=== PATIENT | male | born 1955 | race Caucasian/White ===

== ENCOUNTER 2024-10-20 12:50 | Emergency (ER) | payer OTHER, SELFPAY ==
[2024-10-20] VITALS (47 sets, daily range): BP systolic 84–135; BP diastolic 43–113; PULSE 71–103; TEMP 36.8; O2SAT 90–98; BMI 46.8
--- NOTE | 2024-10-20 12:58 | CT_ITS ---
The [address] [address] Patient Name: MARYBEL THOMSON MRN: [id number] date: 1955 Sex: M Assigned Patient Location: ED.MAIN Current Patient Location: Accession/Order Number: [id number] Exam Date: 10/20/2024 13:50 Report Date: 10/20/2024 14:30 At the request of: SIERRA MCCORMICK Procedure: CT abdomen pelvis w con EXAMINATION: CT abdomen pelvis w con HISTORY: Bright red blood per rectum COMPARISON: No relevant comparison available. TECHNIQUE: CT images were created with IV contrast. Axial, Coronal, and Sagittal images. Dose reduction techniques were achieved by using automated exposure control and/or adjustment of mA and/or kV according to patient size and/or use of iterative reconstruction technique. FINDINGS: LUNG BASES: No visible pulmonary or pleural disease. Moderate coronary atherosclerosis LIVER: No enlargement, atrophy, abnormal density, or significant focal lesion. BILIARY: Cholelithiasis without CT evidence of acute cholecystitis PANCREAS: No lesion, fluid collection, ductal dilatation, or atrophy. SPLEEN: No enlargement or focal lesion. ADRENALS: No mass or enlargement. KIDNEYS: A right nephrolith. Bilateral renal cortical hypodensities likely cysts BOWEL/MESENTERY: Mild colonic diverticulosis without evidence of acute diverticulitis. Nonobstructive bowel gas pattern. Normal appendix. Lobular fluid density multilocular cystic mass identified in the central peritoneal cavity possibly arising from the pancreatic head measuring 16.6 x 9.1 cm in axial image #106 and 21.4 cm in craniocaudal dimension AORTA/VASCULAR: No aneurysm or dissection. RETROPERITONEUM: No aortic aneurysm. Moderate calcific atherosclerosis LYMPH NODES: No adenopathy. URINARY BLADDER: Urinary bladder wall thickening possibly related to nondistention measuring up to 5 mm PELVIC ORGANS: Enlarged prostate measuring 6 cm deforming the urinary bladder ABDOMINAL WALL: 7.5 cm ventral abdominal wall hernia containing fat without strangulation BONES: No bony lesion or fracture. OTHER: Negative. CT/CT abdomen pelvis w con IMPRESSION: Multilocular fluid density cystic lesion measuring 16.6 x 9.1 x 21.4 cm within the central peritoneal cavity possibly arising from the pancreas, this is indeterminate Enlarged prostate gland Electronically authenticated by: BRITTANIE RODRIGUEZ Date: 10/20/2024 14:30
--- NOTE | 2024-10-20 12:58 | ECG_ITS ---
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
--- NOTE | 2024-10-20 13:00 | ED_ITS ---
HPI HPI - General Adult General Chief complaint: Abdominal Pain Stated complaint: RECTAL BLEEDING Time Seen by Provider: 10/20/24 12:53 Source: patient Mode of arrival: ambulance Limitations: no limitations History of Present Illness HPI narrative: 69-year-old male presents for bright red blood per rectum. He states he had a large bloody bowel movement at home today and then he went out to breakfast. While he was sitting at the table eating he had more blood come out of his rectum. He states he had a colonoscopy 10 years ago and he was told he has diverticulosis. He has no complaints of abdominal pain or fever. He has had no vomiting and this morning with the first time he has ever had a bloody bowel movement like this. He tells me he is on no blood thinners. Related Data Home Medications ?Medication ?Instructions ?Recorded ?Confirmed aspirin 81 mg tablet,delayed 81 mg PO DAILY 10/20/24 10/20/24 release (Lalit Low Dose Aspirin) losartan 100 1 tab PO DAILY 10/20/24 10/20/24 mg-hydrochlorothiazide 25 mg tablet Allergies Allergy/AdvReac Type Severity Reaction Status Date / Time No Known Drug Allergies Allergy Verified 10/20/24 12:53 Opioid HPI Opioid Management Most Recent Opioid Data: No Data to Display Review of Systems ROS Narrative A ten point review of systems is negative except as noted above. [facility] Medical History (Updated 10/20/24 @ 16:38 by Jerod Lo MD) Diverticulosis ?K57.90 - Diverticulosis of intestine, part unspecified, without perforation or abscess without bleeding (ICD-10) Hypertension ?I10 - Essential (primary) hypertension (ICD-10) Exam Narrative Exam Narrative: Nurses note and vital signs reviewed and patient is not hypoxic. General: The patient appears in no apparent distress. Skin: Warm, dry, no pallor noted. There is no rash noted. Head: Normocephalic, atraumatic Eye: Normal conjunctiva, no drainage Ears, Nose, Mouth, and Throat: oral mucosa is moist. Nares patent. Cardiovascular: Regular Rate and Rhythm, not tachycardic Respiratory: Patient is in no distress, no accessory muscle use, lungs are clear to auscultation, no wheezing, rales or rhonchi Back: non-tender GI: Obese and nontender. Perianal examination shows no external hemorrhoids. There is a great deal of dried blood on his legs and perineal area. Musculoskeletal: The patient has no evidence of calf tenderness, no pitting edema, symmetrical pulses noted bilaterally Neurological: A&O, normal speech Psychiatric: Cooperative Constitutional Vital Signs, click to edit/add: Last Vital Signs Temp 98.2 F 10/20/24 13:04 Pulse 83 10/20/24 16:20 Resp 14 10/20/24 16:20 BP 97/61 10/20/24 16:00 Pulse Ox 94 L 10/20/24 16:20 O2 Del Method Nasal Cannula 10/20/24 13:03 O2 Flow Rate 3 10/20/24 13:03 Course Vital Signs Vital signs: Vital Signs Pulse Rate 103 H 10/20/24 12:53 Respiratory Rate 20 10/20/24 12:53 Blood Pressure 135/82 10/20/24 12:53 Pulse Oximetry 90 L 10/20/24 12:53 Oxygen Delivery Method Nasal Cannula 10/20/24 12:53 Oxygen Delivery Flow Rate 3 10/20/24 12:53 Temperature 98.2 F 10/20/24 13:04 Pulse Rate 83 10/20/24 16:20 Respiratory Rate 14 10/20/24 16:20 Blood Pressure 97/61 10/20/24 16:00 Pulse Oximetry 94 L 10/20/24 16:20 Oxygen Delivery Method Nasal Cannula 10/20/24 13:03 Oxygen Delivery Flow Rate 3 10/20/24 13:03 Medical Decision Making MDM Narrative Medical decision making narrative: Hemoglobin is 14.9 initially. He had a brief episode of low blood pressure in the 80s and this responded to IV fluids. He, as of the time of this dictation, has not had any more GI bleeding. CT scan shows a cystic mass in the peritoneal cavity possibly associated with the pancreas. Family initially requested transfer to [facility] but they have no bed availability. They have requested then transferred to [facility] and I have spoken to the hospitalist there who accepts the patient. The patient is hemodynamically stable and agreeable for transfer. Differential Diagnosis Differential Diagnosis: Upper GI bleed, lower GI bleed, diverticulitis Lab Data Lab results reviewed: Yes I reviewed the patient's lab results Labs: Lab Results 10/20/24 Range/Units 13:05 WBC 10.6 (4.0-11.0) 10^3/uL RBC 5.36 (4.70-6.10) 10^6/uL Hgb 14.9 (14.0-18.0) g/dL Hct 49.2 (42.0-54.0) % MCV 91.8 (80.0-94.0) fL MCH 27.8 (25.9-34.0) pg MCHC 30.3 (29.9-35.2) g/dL RDW 15.1 H (11.0-15.0) % Plt Count 267 (150-450) 10^3/uL MPV 11.4 (9.5-13.5) fL Neut % (Auto) 69.1 (43.0-75.0) % Lymph % (Auto) 20.5 (20.5-60.0) % [place] % (Auto) 6.6 (1.7-12.0) % Eos % (Auto) 2.7 (0.9-7.0) % Baso % (Auto) 0.6 (0.2-2.0) % Neut # (Auto) 7.3 H (1.4-6.5) 10^3/uL Lymph # (Auto) 2.2 (1.2-3.8) 10^3/uL [place] # (Auto) 0.7 (0.3-0.8) 10^3/uL Eos # (Auto) 0.3 (0.0-0.7) 10^3/uL Baso # (Auto) 0.1 (0.0-0.1) 10^3/uL Abs Immat Gran (auto) 0.05 H (0.00-0.03) 10^3/uL Imm/Tot Granulo (auto) 0.5 (0.0-0.5) % PT 11.1 (9.0-11.6) sec INR 1.05 APTT 23.7 (22.3-36.2) sec Sodium 142 (136-145) mmol/L Potassium 4.2 (3.5-5.1) mmol/L Chloride 102 (98-107) mmol/L Carbon Dioxide 35.0 H (21.0-32.0) mmol/L Anion Gap 9.2 BUN 16.0 (7.0-18.0) mg/dL Creatinine 1.14 (0.70-1.30) mg/dL Est GFR ( Amer) >60 (>=60 mL/min/1.73m^2) Est GFR (Non-Af Amer) >60 (>=60 mL/min/1.73m^2) BUN/Creatinine Ratio 14.0 Glucose 155 H (74-106) mg/dL Calcium 9.2 (8.5-10.1) mg/dL Imaging Data CT scan - abdomen: Radiologist's impression: ITS Impressions Abdomen/Pelvis CT 10/20/24 12:58 IMPRESSION: Multilocular fluid density cystic lesion measuring 16.6 x 9.1 x 21.4 cm within the central peritoneal cavity possibly arising from the pancreas, this is indeterminate Enlarged prostate gland Electronically authenticated by: BRITTANIE RODRIGUEZ Date: 10/20/2024 14:30 ECG Data Attestation: I personally reviewed and interpreted this ECG as follows: (EKG on my interpretation shows sinus rhythm with rate of 84 and no acute changes) Critical Care Time Critical Care Time Critical Care Time: Yes Total Critical Care Time: 35 Attestation: Due to the high probability of sudden and clinically significant deterioration in the patient's condition he/she required the highest level of my preparedness to intervene urgently I provided critical care time including documentation time, medication orders and management, reevaluation, vital sign assessment, ordering and reviewing of lab tests, ordering and reviewing of x-ray studies, and admission orders. Aggregate critical care time is 35 minutes including only time during which I was engaged in work directly related to his/her care and did not include time spent treating other patients simultaneously. Discharge Plan Discharge Chief Complaint: Abdominal Pain Clinical Impression: GI bleed, Abdominal mass Patient Disposition: [facility] Time of Disposition Decision: 16:36 Discharge Location: [facility] Condition: Good Mode of Transportation: Private Vehicle
[2024-10-20 13:23] LABS: Anion Gap 9.2; Calcium 9.2 mg/dL (8.5-10.1); Chloride 102 mmol/L (98-107); Estimated GFR (African America >60 (>=60 mL/min/1.73m^2); Estimated GFR (Non-African Ame >60 (>=60 mL/min/1.73m^2); Glucose 155 mg/dL (74-106); Potassium 4.2 mmol/L (3.5-5.1); Sodium 142 mmol/L (136-145)
[2024-10-20 13:24] LABS: Basophils Absolute Auto 0.1 10^3/uL (0.0-0.1); Basophils Percent Auto 0.6 % (0.2-2.0); Eosinophils Absolute Auto 0.3 10^3/uL (0.0-0.7); Eosinophils Percent Auto 2.7 % (0.9-7.0); Hematocrit 49.2 % (42.0-54.0); Hemoglobin 14.9 g/dL (14.0-18.0); Immature Granulocytes Abs Auto 0.05 10^3/uL (0.00-0.03); Immature Granulocytes Pct Auto 0.5 % (0.0-0.5); Lymphocytes Absolute Auto 2.2 10^3/uL (1.2-3.8); Lymphocytes Percent Auto 20.5 % (20.5-60.0); Mean Corpuscular HGB Conc 30.3 g/dL (29.9-35.2); Mean Corpuscular Hemoglobin 27.8 pg (25.9-34.0); Mean Corpuscular Volume 91.8 fL (80.0-94.0); Mean Platelet Volume 11.4 fL (9.5-13.5); Monocytes Absolute Auto 0.7 10^3/uL (0.3-0.8); Monocytes Percent Auto 6.6 % (1.7-12.0); Neutrophils Absolute Auto 7.3 10^3/uL (1.4-6.5); Neutrophils Percent Auto 69.1 % (43.0-75.0); Platelet Count 267 10^3/uL (150-450); Red Blood Count 5.36 10^6/uL (4.70-6.10); Red Cell Distribution Width 15.1 % (11.0-15.0); White Blood Count 10.6 10^3/uL (4.0-11.0)
[2024-10-20 13:38] LABS: INR 1.05; Partial Thromboplastin Time 23.7 sec (22.3-36.2); Prothrombin Time 11.1 sec (9.0-11.6)
[2024-10-20] MEDS: 0.9 % SODIUM CHLORIDE 1,000 ML 100 ML IV (14:36)
[2024-10-20] MEDS: PANTOPRAZOLE SODIUM 40 MG VIAL IV (16:50)
[2024-10-20 17:51] LABS: Basophils Absolute Auto 0.1 10^3/uL (0.0-0.1); Basophils Percent Auto 0.4 % (0.2-2.0); Eosinophils Absolute Auto 0.1 10^3/uL (0.0-0.7); Eosinophils Percent Auto 0.4 % (0.9-7.0); Hematocrit 43.1 % (42.0-54.0); Hemoglobin 13.2 g/dL (14.0-18.0); Immature Granulocytes Abs Auto 0.03 10^3/uL (0.00-0.03); Immature Granulocytes Pct Auto 0.2 % (0.0-0.5); Lymphocytes Absolute Auto 1.4 10^3/uL (1.2-3.8); Lymphocytes Percent Auto 10.4 % (20.5-60.0); Mean Corpuscular HGB Conc 30.6 g/dL (29.9-35.2); Mean Corpuscular Volume 91.5 fL (80.0-94.0); Mean Platelet Volume 11.1 fL (9.5-13.5); Monocytes Absolute Auto 0.7 10^3/uL (0.3-0.8); Neutrophils Absolute Auto 11.4 10^3/uL (1.4-6.5); Neutrophils Percent Auto 83.6 % (43.0-75.0); Platelet Count 245 10^3/uL (150-450); Red Blood Count 4.71 10^6/uL (4.70-6.10); White Blood Count 13.6 10^3/uL (4.0-11.0)
--- NOTE | 2024-10-20 19:14 | PC.NURSE ---
Cost Accounting Analyst called to inquire on getting patient a hospital bed for comfort as we do not currently have a transfer time for pt to [facility].
--- NOTE | 2024-10-20 19:47 | PC.NURSE ---
Pt placed in regular hospital bed at this time for comfort. Pt denies any needs at this time. Pt Christine wishes to be notified when pt transfers. Phone number provided [phone].
[2024-10-21] VITALS (57 sets, daily range): BP systolic 73–162; BP diastolic 30–78; PULSE 66–97; TEMP 36.8–36.9; O2SAT 77–97
--- NOTE | 2024-10-21 00:20 | ED_ITS ---
HPI HPI - General Adult General Chief complaint: Abdominal Pain Stated complaint: RECTAL BLEEDING Time Seen by Provider: 10/20/24 12:53 Source: patient Mode of arrival: ambulance Limitations: no limitations History of Present Illness HPI narrative: This 69-year-old male was signed out to me at shift change. He is currently awaiting for a bed assignment at [facility]. He presents for evaluation of a GI bleed. The patient had 2 episodes of GI bleeding earlier in the day but had not had any additional episodes of GI bleeding after coming to the emergency department. He did have an episode of hypotension that responded to IV fluids. A large cystic mass was found on his CT scan. The patient has been resting comfortably in the emergency department without any additional episodes of hypotension or GI bleeding. It is unclear when a bed will be assigned to him and repeat blood work was ordered from the emergency department. Repeat lab are ordered. His electrolytes and liver function test remained stable. His hemoglobin dropped from 13.2-12.3. His vital signs have remained stable. At the time of this dictation his pulse is 76 and blood pressure is 124/51. He will be continually monitored in the emergency department. He has also not had any additional bloody stools while in the emergency department. 0530: Patient felt the urge to have a bowel movement and was given a bedside commode. He did pass several small clots and urinated. His vital signs remained stable during this time. He was seen and evaluated. He is not having any abdominal pain. He does not feel dizzy or short of breath. morning labs were repeated and his Hb dropped from 12.3 to 12.2 and hct remained the same. BMP remains unchanged. His care will be transferred to the incoming physician at 7am while awaiting transfer to [facility]. Related Data Home Medications ?Medication ?Instructions ?Recorded ?Confirmed aspirin 81 mg tablet,delayed 81 mg PO DAILY 10/20/24 10/20/24 release (Lalit Low Dose Aspirin) losartan 100 1 tab PO DAILY 10/20/24 10/20/24 mg-hydrochlorothiazide 25 mg tablet Allergies Allergy/AdvReac Type Severity Reaction Status Date / Time No Known Drug Allergies Allergy Verified 10/20/24 12:53 Opioid HPI Opioid Management Most Recent Opioid Data: No Data to Display [facility] Medical History (Updated 10/20/24 @ 16:38 by Jerod Lo MD) Diverticulosis ?K57.90 - Diverticulosis of intestine, part unspecified, without perforation or abscess without bleeding (ICD-10) Hypertension ?I10 - Essential (primary) hypertension (ICD-10) Exam Constitutional Vital Signs, click to edit/add: Last Vital Signs Temp 98.2 F 10/20/24 13:04 Pulse 84 10/21/24 05:22 Resp 15 10/21/24 05:22 BP 133/78 10/21/24 05:22 Pulse Ox 92 L 10/21/24 05:22 O2 Del Method Nasal Cannula 10/21/24 02:28 O2 Flow Rate 4 10/21/24 02:28 Course Vital Signs Vital signs: Vital Signs Pulse Rate 103 H 10/20/24 12:53 Respiratory Rate 20 10/20/24 12:53 Blood Pressure 135/82 10/20/24 12:53 Pulse Oximetry 90 L 10/20/24 12:53 Oxygen Delivery Method Nasal Cannula 10/20/24 12:53 Oxygen Delivery Flow Rate 3 10/20/24 12:53 Temperature 98.2 F 10/20/24 13:04 Pulse Rate 84 10/21/24 05:22 Respiratory Rate 15 10/21/24 05:22 Blood Pressure 133/78 10/21/24 05:22 Pulse Oximetry 92 L 10/21/24 05:22 Oxygen Delivery Method Nasal Cannula 10/21/24 02:28 Oxygen Delivery Flow Rate 4 10/21/24 02:28 Medical Decision Making Lab Data Labs: Lab Results 10/20/24 10/20/24 10/21/24 Range/Units 13:05 17:40 00:30 WBC 10.6 13.6 H 14.4 H (4.0-11.0) 10^3/uL RBC 5.36 4.71 4.41 L (4.70-6.10) 10^6/uL Hgb 14.9 13.2 L 12.3 L (14.0-18.0) g/dL Hct 49.2 43.1 40.7 L (42.0-54.0) % MCV 91.8 91.5 92.3 (80.0-94.0) fL MCH 27.8 28.0 27.9 (25.9-34.0) pg MCHC 30.3 30.6 30.2 (29.9-35.2) g/dL RDW 15.1 H 15.0 15.2 H (11.0-15.0) % Plt Count 267 245 238 (150-450) 10^3/uL MPV 11.4 11.1 11.0 (9.5-13.5) fL Neut % (Auto) 69.1 83.6 H 74.4 (43.0-75.0) % Lymph % (Auto) 20.5 10.4 L 17.7 L (20.5-60.0) % [place] % (Auto) 6.6 5.0 5.9 (1.7-12.0) % Eos % (Auto) 2.7 0.4 L 1.3 (0.9-7.0) % Baso % (Auto) 0.6 0.4 0.4 (0.2-2.0) % Neut # (Auto) 7.3 H 11.4 H 10.7 H (1.4-6.5) 10^3/uL Lymph # (Auto) 2.2 1.4 2.6 (1.2-3.8) 10^3/uL Caroline # (Auto) 0.7 0.7 0.9 H (0.3-0.8) 10^3/uL Eos # (Auto) 0.3 0.1 0.2 (0.0-0.7) 10^3/uL Baso # (Auto) 0.1 0.1 0.1 (0.0-0.1) 10^3/uL Abs Immat Gran (auto) 0.05 H 0.03 0.04 H (0.00-0.03) 10^3/uL Imm/Tot Granulo (auto) 0.5 0.2 0.3 (0.0-0.5) % PT 11.1 (9.0-11.6) sec INR 1.05 APTT 23.7 (22.3-36.2) sec Sodium 142 143 (136-145) mmol/L Potassium 4.2 5.1 (3.5-5.1) mmol/L Chloride 102 105 (98-107) mmol/L Carbon Dioxide 35.0 H 35.7 H (21.0-32.0) mmol/L Anion Gap 9.2 7.4 BUN 16.0 18.0 (7.0-18.0) mg/dL Creatinine 1.14 0.97 (0.70-1.30) mg/dL Est GFR ( Amer) >60 >60 (>=60 mL/min/1.73m^2) Est GFR (Non-Af Amer) >60 >60 (>=60 mL/min/1.73m^2) BUN/Creatinine Ratio 14.0 18.6 Glucose 155 H 117 H (74-106) mg/dL Lactate 1.7 (0.4-2.0) mmol/L Calcium 9.2 8.4 L (8.5-10.1) mg/dL Total Bilirubin 0.7 (0.2-1.0) mg/dL AST 16 (15-37) U/L ALT 19 (16-63) U/L Alkaline Phosphatase 46 (46-116) U/L Total Protein 5.7 L (6.4-8.2) g/dL Albumin 2.6 L (3.4-5.0) g/dL Globulin 3.1 g/dL Albumin/Globulin Ratio 0.8 12// Range/Units 06:20 WBC 13.2 H (4.0-11.0) 10^3/uL RBC 4.43 L (4.70-6.10) 10^6/uL Hgb 12.2 L (14.0-18.0) g/dL Hct 40.7 L (42.0-54.0) % MCV 91.9 (80.0-94.0) fL MCH 27.5 (25.9-34.0) pg MCHC 30.0 (29.9-35.2) g/dL RDW 15.1 H (11.0-15.0) % Plt Count 230 (150-450) 10^3/uL MPV 10.9 (9.5-13.5) fL Neut % (Auto) 77.6 H (43.0-75.0) % Lymph % (Auto) 13.2 L (20.5-60.0) % Caroline % (Auto) 7.4 (1.7-12.0) % Eos % (Auto) 1.2 (0.9-7.0) % Baso % (Auto) 0.3 (0.2-2.0) % Neut # (Auto) 10.3 H (1.4-6.5) 10^3/uL Lymph # (Auto) 1.7 (1.2-3.8) 10^3/uL Caroline # (Auto) 1.0 H (0.3-0.8) 10^3/uL Eos # (Auto) 0.2 (0.0-0.7) 10^3/uL Baso # (Auto) 0.0 (0.0-0.1) 10^3/uL Abs Immat Gran (auto) 0.04 H (0.00-0.03) 10^3/uL Imm/Tot Granulo (auto) 0.3 (0.0-0.5) % PT (9.0-11.6) sec INR APTT (22.3-36.2) sec Sodium 140 (136-145) mmol/L Potassium 4.7 (3.5-5.1) mmol/L Chloride 102 (98-107) mmol/L Carbon Dioxide 34.5 H (21.0-32.0) mmol/L Anion Gap 8.2 BUN 18.0 (7.0-18.0) mg/dL Creatinine 1.02 (0.70-1.30) mg/dL Est GFR ( Amer) >60 (>=60 mL/min/1.73m^2) Est GFR (Non-Af Amer) >60 (>=60 mL/min/1.73m^2) BUN/Creatinine Ratio 17.6 Glucose 126 H (74-106) mg/dL Lactate (0.4-2.0) mmol/L Calcium 8.5 (8.5-10.1) mg/dL Total Bilirubin (0.2-1.0) mg/dL AST (15-37) U/L ALT (16-63) U/L Alkaline Phosphatase (46-116) U/L Total Protein (6.4-8.2) g/dL Albumin (3.4-5.0) g/dL Globulin g/dL Albumin/Globulin Ratio Discharge Plan Discharge Chief Complaint: Abdominal Pain Clinical Impression: GI bleed, Abdominal mass Patient Disposition: [facility] Time of Disposition Decision: 16:36 Discharge Location: [facility] Condition: Good Mode of Transportation: Private Vehicle
[2024-10-21 00:44] LABS: Basophils Absolute Auto 0.1 10^3/uL (0.0-0.1); Basophils Percent Auto 0.4 % (0.2-2.0); Eosinophils Absolute Auto 0.2 10^3/uL (0.0-0.7); Eosinophils Percent Auto 1.3 % (0.9-7.0); Hematocrit 40.7 % (42.0-54.0); Hemoglobin 12.3 g/dL (14.0-18.0); Immature Granulocytes Abs Auto 0.04 10^3/uL (0.00-0.03); Immature Granulocytes Pct Auto 0.3 % (0.0-0.5); Lymphocytes Absolute Auto 2.6 10^3/uL (1.2-3.8); Lymphocytes Percent Auto 17.7 % (20.5-60.0); Mean Corpuscular HGB Conc 30.2 g/dL (29.9-35.2); Mean Corpuscular Hemoglobin 27.9 pg (25.9-34.0); Mean Corpuscular Volume 92.3 fL (80.0-94.0); Monocytes Absolute Auto 0.9 10^3/uL (0.3-0.8); Monocytes Percent Auto 5.9 % (1.7-12.0); Neutrophils Absolute Auto 10.7 10^3/uL (1.4-6.5); Neutrophils Percent Auto 74.4 % (43.0-75.0); Platelet Count 238 10^3/uL (150-450); Red Blood Count 4.41 10^6/uL (4.70-6.10); Red Cell Distribution Width 15.2 % (11.0-15.0); White Blood Count 14.4 10^3/uL (4.0-11.0)
--- NOTE | 2024-10-21 00:52 | PC.NURSE ---
[facility] transfer line called to obtain update on patient. They are currently still waiting for an open bed for patient and do not anticipate any open beds until they have some patients discharged but hope to have a bed by mid afternoon. This nurse was informed that should patient begin actively bleeding to call transfer line back. Pt sleeping at this time. Labs repeated and still remain stable at this time.
[2024-10-21 00:54] LABS: Alanine Aminotransferase 19 U/L (16-63); Albumin Globulin Ratio 0.8; Albumin Level 2.6 g/dL (3.4-5.0); Alkaline Phosphatase 46 U/L (46-116); Anion Gap 7.4; Aspartate Amino Transferase 16 U/L (15-37); BUN Creatinine Ratio 18.6; Bilirubin Total 0.7 mg/dL (0.2-1.0); Calcium 8.4 mg/dL (8.5-10.1); Carbon Dioxide 35.7 mmol/L (21.0-32.0); Chloride 105 mmol/L (98-107); Estimated GFR (African America >60 (>=60 mL/min/1.73m^2); Estimated GFR (Non-African Ame >60 (>=60 mL/min/1.73m^2); Globulin 3.1 g/dL; Glucose 117 mg/dL (74-106); Potassium 5.1 mmol/L (3.5-5.1); Sodium 143 mmol/L (136-145); Total Protein 5.7 g/dL (6.4-8.2)
[2024-10-21 00:56] LABS: Lactate/Lactic Acid 1.7 mmol/L (0.4-2.0)
--- NOTE | 2024-10-21 01:42 | PC.NURSE ---
Pt assessed by this nurse and currently remains stable with no active bleeding noted at this time. Pt denies any needs at present.
--- NOTE | 2024-10-21 05:24 | PC.NURSE ---
Pt up to [facility]. Upon finishing, pt noted to have several small clots bright red in color. Pt vitals remain stable at this time. Pt denies any needs at this time.
[2024-10-21 06:25] LABS: Basophils Percent Auto 0.3 % (0.2-2.0); Eosinophils Absolute Auto 0.2 10^3/uL (0.0-0.7); Eosinophils Percent Auto 1.2 % (0.9-7.0); Hematocrit 40.7 % (42.0-54.0); Hemoglobin 12.2 g/dL (14.0-18.0); Immature Granulocytes Abs Auto 0.04 10^3/uL (0.00-0.03); Immature Granulocytes Pct Auto 0.3 % (0.0-0.5); Lymphocytes Absolute Auto 1.7 10^3/uL (1.2-3.8); Lymphocytes Percent Auto 13.2 % (20.5-60.0); Mean Corpuscular Hemoglobin 27.5 pg (25.9-34.0); Mean Corpuscular Volume 91.9 fL (80.0-94.0); Mean Platelet Volume 10.9 fL (9.5-13.5); Monocytes Percent Auto 7.4 % (1.7-12.0); Neutrophils Absolute Auto 10.3 10^3/uL (1.4-6.5); Neutrophils Percent Auto 77.6 % (43.0-75.0); Platelet Count 230 10^3/uL (150-450); Red Blood Count 4.43 10^6/uL (4.70-6.10); Red Cell Distribution Width 15.1 % (11.0-15.0); White Blood Count 13.2 10^3/uL (4.0-11.0)
[2024-10-21 06:33] LABS: Anion Gap 8.2; BUN Creatinine Ratio 17.6; Calcium 8.5 mg/dL (8.5-10.1); Carbon Dioxide 34.5 mmol/L (21.0-32.0); Chloride 102 mmol/L (98-107); Estimated GFR (African America >60 (>=60 mL/min/1.73m^2); Estimated GFR (Non-African Ame >60 (>=60 mL/min/1.73m^2); Glucose 126 mg/dL (74-106); Potassium 4.7 mmol/L (3.5-5.1); Sodium 140 mmol/L (136-145)
[2024-10-21] MEDS: 0.9 % SODIUM CHLORIDE 1,000 ML 100 ML IV (06:53)
[2024-10-21 13:59] LABS: Basophils Percent Auto 0.3 % (0.2-2.0); Eosinophils Absolute Auto 0.2 10^3/uL (0.0-0.7); Eosinophils Percent Auto 1.8 % (0.9-7.0); Hemoglobin 11.7 g/dL (14.0-18.0); Immature Granulocytes Abs Auto 0.03 10^3/uL (0.00-0.03); Immature Granulocytes Pct Auto 0.2 % (0.0-0.5); Lymphocytes Percent Auto 16.3 % (20.5-60.0); Mean Corpuscular Hemoglobin 27.7 pg (25.9-34.0); Mean Corpuscular Volume 92.2 fL (80.0-94.0); Mean Platelet Volume 10.8 fL (9.5-13.5); Monocytes Absolute Auto 0.7 10^3/uL (0.3-0.8); Monocytes Percent Auto 5.5 % (1.7-12.0); Neutrophils Absolute Auto 9.3 10^3/uL (1.4-6.5); Neutrophils Percent Auto 75.9 % (43.0-75.0); Platelet Count 258 10^3/uL (150-450); Red Blood Count 4.23 10^6/uL (4.70-6.10); Red Cell Distribution Width 15.2 % (11.0-15.0); White Blood Count 12.3 10^3/uL (4.0-11.0)
[2024-10-21] MEDS: PANTOPRAZOLE SODIUM 40 MG VIAL IV (14:02)
== END 2024-10-21 17:00 | disposition short-term general hospital (02) ==
PROVIDERS: Emergency Medicine; Emergency Provider Emergency Medicine
DX: K92.2 Gastrointestinal hemorrhage, unspecified (principal); R19.00 Intra-abdominal and pelvic swelling, mass and lump, unspecified site; I95.9 Hypotension, unspecified
CPT/HCPCS: 36415; 36430; 74177; 80048; 80053; 83605; 85025; 85610; 85730; 86850; 86900; 86901; 86923; 93005; 96374; 96376; 99285; P9016; Q9967